=== PATIENT | female | born 1990 | race Caucasian/White ===

== ENCOUNTER → 2017-05-26 13:10 | Outpatient (CLI) | payer OTHER, SELFPAY ==
[2017-05-26 14:51] LABS: Anion Gap 6 (5-15); BUN 14 mg/dL (7-18); BUN/Creat Ratio 17.5 RATIO (10-20); Chloride 108 mmol/L (98-107); EST Glomerular Filtration Rate 91 mL/min (>60); Est Glom Filt Rate - Afr Amer 110 mL/min (>60); Ferritin 17 ng/mL (8-252); Glucose 88 mg/dL (74-106); Sodium Level 140 mmol/L (136-145); Thyroid Stim Hormone (TSH) 0.73 uIU/mL (0.358-3.74)
== END ==
PROVIDERS: Family Provider Family Medicine; PCP Family Medicine; Visit Provider Family Medicine
DX: F41.1 Generalized anxiety disorder (principal)
CPT/HCPCS: 36415; 80048; 82728; 84443

== ENCOUNTER 2017-10-30 01:14 | Emergency (ER) | payer OTHER, SELFPAY ==
[2017-10-30] VITALS (7 sets, daily range): BP systolic 118–161; BP diastolic 68–131; PULSE 80–144; RESP 16–24; TEMP 36.3; O2SAT 96–99; BMI 42.8
[2017-10-30] MEDS: 0.9% Normal Saline 1,000 ML 1000 ML IV (01:29)
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
--- NOTE | 2017-10-30 01:40 | ED.RN ---
BLOOD DRAWN OFF OF IV ALREADY ESTABLISHED BY SQUAD IN LEFT HAND. ATTEMPTED A SECOND IV WITH NO SUCCESS. WILL ATTEMPT AGAIN AFTER IMAGING. BLOOD WASTE TUBE DRAWN PRIOR TO THE REST OF BLOODWORK TUBES.
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
[2017-10-30 01:41] LABS: Bedside Glucose 115 mg/dL (70-110)
[2017-10-30 01:44] LABS: Absolute Lymphocyte Count 3.34 X10^3/ul (0.83-4.51); Basophil# 0.06 X10^3/uL; Basophil% 0.4 % (0-1); Eosinophil# 0.16 X10^3/uL; Hematocrit 46.2 % (37-47); Hemoglobin 15.3 g/dl (12.0-15.0); Lymphocyte # 3.34 X10^3/ul (4.0); Lymphocyte % 21.9 % (19-41); Mean Corp Hgb Conc 33.1 g/gl (32-36); Mean Corpuscular Hgb 30.8 pg (27.0-32.0); Mean Platelet Vol. 10.1 fl (6.2-12.0); Monocyte# 0.71 X10^3/uL; Monocyte% 4.7 % (0-10); Neutrophil # 10.95 X10^3/uL (2.7-7.7); Neutrophil % 71.7 % (47-70); POSITIVE COUNT NO; POSITIVE DIFFERENTIAL NO; POSITIVE MORPHOLOGY NO; Platelet Count 351 K/mm3 (150-450); RBC Distribution Width CV 12.8 % (11.6-14.6); RBC Distribution Width SD 43.3 fl (35.1-43.9); Red Blood Count 4.97 M/mm3 (4.2-5.4); White Blood Count 15.3 K/mm3 (4.4-11.0)
[2017-10-30 01:59] LABS: Anion Gap 8 (5-15); BUN 14 mg/dL (7-18); BUN/Creat Ratio 13.5 RATIO (10-20); Calcium,Total 9.1 mg/dL (8.5-10.1); Chloride 110 mmol/L (98-107); Creatinine, Serum 1.04 mg/dL (0.55-1.02); EST Glomerular Filtration Rate 67 mL/min (>60); Est Glom Filt Rate - Afr Amer 81 mL/min (>60); Estimated Creatinine Clearance 69.54 ml/min; Glucose 114 mg/dL (74-106); Potassium 3.8 mmol/L (3.5-5.1); Sodium Level 143 mmol/L (136-145)
[2017-10-30 02:07] LABS: Pregnancy, Serum, hCG Quali. NEGATIVE Negative (0-9 Nonpreg)
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
--- NOTE | 2017-10-30 02:46 | ED.RN ---
PT MOTHER CALLS PT CELLPHONE. PT TALKING WITH MOTHER.
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
[2017-10-30] MEDS: HYDROcodone Bitartrate/Apap 5/325 Tablet PO (07:52)
== END 2017-10-30 08:12 | disposition home or self-care (01) ==
PROVIDERS: Emergency Provider Emergency Medicine; Family Provider Family Medicine; PCP Family Medicine
DX: S82.54XA Nondisplaced fracture of medial malleolus of right tibia, initial encounter for closed fracture (principal); S00.81XA Abrasion of other part of head, initial encounter; S00.01XA Abrasion of scalp, initial encounter; S50.811A Abrasion of right forearm, initial encounter; S90.511A Abrasion, right ankle, initial encounter; N20.0 Calculus of kidney; R40.2410 Glasgow coma scale score 13-15, unspecified time; V89.2XXA Person injured in unspecified motor-vehicle accident, traffic, initial encounter; Y93.9 Activity, unspecified; Y92.9 Unspecified place or not applicable; F10.129 Alcohol abuse with intoxication, unspecified; Y90.9 Presence of alcohol in blood, level not specified; F32.9 Major depressive disorder, single episode, unspecified; Z79.899 Other long term (current) drug therapy
CPT/HCPCS: 29515; 70450; 71045; 72125; 73090; 73600; 74177; 80048; 80320; 82962; 84703; 85025; 96360; 96361; 99285; J7030; Q9967; A4216; G0480

== ENCOUNTER → 2024-09-05 | Outpatient (CLI) | payer OTHER, SELFPAY ==
[2024-09-05 19:01] LABS: ALB/GLOB Ratio 1.3 RATIO (0.9-2.4); AST(SGOT) 24 U/L (<=31); Alanine Aminotransfer ALT/SGPT 14 U/L (<=34); Albumin, Serum 4.5 g/dL (3.5-5.0); Alkaline Phosphatase 69 U/L (35-104); Anion Gap 14 (5-15); BUN 14 mg/dL (4-19); BUN/Creat Ratio 17.8 RATIO (10-20); Calcium,Total 9.8 mg/dL (7.6-11.0); Carbon Dioxide 23.1 mmol/L (21.0-32.0); Chloride 103 mmol/L (98-108); Cholesterol 196 mg/dL (<=200); Creatinine, Serum 0.77 mg/dL (0.70-1.20); EST Glomerular Filtration Rate 104 (>60); Globulin 3.4 g/dL (2.2-4.2); Glucose 90 mg/dL (70-99); High Density Lipoprotein 74 mg/dL; Potassium 4.5 mmol/L (3.3-5.1); Protein, Total 7.9 g/dL (5.9-8.4); Sodium Level 139 mmol/L (133-145)
== END | disposition home or self-care (01) ==
PROVIDERS: PCP Family Medicine; Referring Provider Family Medicine; Visit Provider Family Medicine
DX: E66.812 Obesity, class 2 (principal)
CPT/HCPCS: 36415; 80053; 82465; 83718; 84443